=== PATIENT | female | born 1935 | race Caucasian/White ===

== ENCOUNTER → 2016-04-10 11:15 | Outpatient (CLI) | payer MEDICARE, OTHER ==
[2015-12-12 07:59] VITALS: BMI 31.6
[~2016-04-10 11:15] MED LIST: ALBUTEROL2.5 MG/3 M UPD; CARAFATE1 G PO; CORDARONE200 MG PO; FLUTICASONE PRO16 GM NASAL; MUCINEX600 MG PO; OMNICEF300 MG PO; PEPCID20 MG PO; PREDNISONE20 MG PO; SINGULAIR10 MG PO; TESSALON PERLE100 MG PO
== END | disposition home or self-care (01) ==
LOC: D.MRI 11:15
DX: M54.5 Low back pain (principal); M25.561 Pain in right knee

== ENCOUNTER 2017-04-10 15:58 | Inpatient (IN) | payer MEDICARE, OTHER | END 2017-04-15 16:38 | disposition home health service (06) | DRG 603 | LOC: D.ER 15:58 → D.SDCHOLD 22:16 → D.MS 22:38 | PROC: 0Y9M0ZZ Drainage of Right Foot, Open Approach (ICD-10-PCS; principal; 2017-04-10) | DX: L02.611 Cutaneous abscess of right foot (principal); S90.31XA Contusion of right foot, initial encounter; W22.8XXA Striking against or struck by other objects, initial encounter; Y93.79 Activity, other specified sports and athletics; I48.91 Unspecified atrial fibrillation; Z87.891 Personal history of nicotine dependence ==

== ENCOUNTER 2017-11-09 22:28 | Emergency (ER) | payer MEDICARE, OTHER ==
[~2017-11-09] VITALS: Ht 160 cm; Wt 80.3 kg
[~2017-11-09 22:28] MED LIST changes: +DOXYCYCLINE HY100 M2 PO; +ELIQUIS5 MG PO; +KEFLEX500 MG PO; +KRILL OIL 1,001 EAC1 PO; +MAG-OXIDE400 MG PO; +MEPERIDINE HCL50 MG PO; +MULTIPLE VITAMI1 TA1 PO; +TIKOSYN500 MCG PO; +VITAMIN D31000 UNIT PO
[2017-11-09 22:36] VITALS: Ht 160 cm; Wt 80.3 kg
[2017-11-09] MEDS ORDERED: BAYER CHEWABLE81 MG PO (22:38)
[2017-11-09] MEDS ORDERED: GINKGO BILOBA120 MG PO (22:38)
[2017-11-09] MEDS ORDERED: VITAMIN E600 UNIT PO (22:38)
[2017-11-10 00:31] VITALS: BP 156/68
== END 2017-11-10 00:30 | disposition home or self-care (01) ==
LOC: D.ER 22:28
DX: T82.897A Other specified complication of cardiac prosthetic devices, implants and grafts, initial encounter (principal)

== ENCOUNTER 2018-03-02 13:25 | Inpatient (IN) | payer MEDICARE, OTHER ==
[~2018-03-02] VITALS: Ht 160 cm; Wt 76.7 kg
[~2018-03-02 13:25] MED LIST changes: +BAYER CHEWABLE81 MG PO; +GINKGO BILOBA120 MG PO; +VITAMIN E600 UNIT PO
--- NOTE | 2018-03-02 14:02 | NUR ---
RECEIVED PT TO ROOM 1207 VIA WHEELCHAIR, ACCOMPANIED BY . ORIENTED PT TO ROOM AND CALL LIGHT, WILL ASSESS PT AND START PLAN OF CARE.
[2018-03-02] MEDS ORDERED: VITAMIN E400 UNI2 PO (14:21)
[2018-03-02] MEDS ORDERED: PEPCID AC20 MG PO (14:24)
[2018-03-02] MEDS ORDERED: POTASSIUM CHLO20 MEQ PO (14:25)
[2018-03-02] MEDS ORDERED: CO Q-10100 MG PO (14:26)
--- NOTE | 2018-03-02 14:57 | NUR ---
CALLED VASCULAR NURSE ANNE MARIE AND INFORMED HER THAT I NEED IV ACCESS ON PT.
[2018-03-02 14:58] VITALS: BP 130/65
[2018-03-02 15:18] LABS: BASOPHILS 0.2 % (0-2); EOSINOPHILS 0.1 % (0-7); HEMOGLOBIN 13.8 g/dL (12-16); IMMATURE GRANULOCYTES 1.4 % (0-5); LYMPHOCYTES 6.4 % (15-50); MCH 36.8 pg (26.0-34.0); MCHC 39.4 g/dL (31.0-37.0); MCV 93.3 fL (80.0-100.0); MEAN PLATELET VOLUME 10.6 fL (7.4-10.4); MONOCYTES 19.1 % (2-11); NEUTROPHILS 72.8 % (40-80); PLATELET COUNT 223 10x3/uL (130-400); RBC 3.75 10x6/uL (4.00-5.40); RDW 14.1 % (11.5-14.5); WBC 18.6 10x3/uL (4.8-10.8)
[2018-03-02 15:59] LABS: ALBUMIN 2.8 g/dL (3.4-5.0); ANION GAP 17.1 mmol/L (8-16); BILIRUBIN - TOTAL 1.25 mg/dL (0.2-1.3); CALCIUM 8.7 mg/dL (8.5-10.1); CARBON DIOXIDE 23.5 mmol/L (21.0-32.0); POTASSIUM - SERUM 3.6 mmol/L (3.5-5.1)
--- NOTE | 2018-03-02 19:45 | NUR ---
PATIENT SITTING UP IN BED. ALERT AND ORIENTED. IV TO LEFT FA INFUSING D5NS @ 50 ML/HR. O2 AT 2L NC. TAPE TRANSFERRER ON. PATIENT HAS REDNESS TO BOTH EYES. PATIENT STATES SHE HAS PINK EYE. PATIENT VOICE IS HOARSE. THERMOSTAT ADJUSTED PER PATIENT REQUEST. NO FURTHER NEEDS AT THIS TIME. BED IN LOWEST POSITION. SIDE RAILS UP. CALL LIGHT IN REACH. CONTINUE PLAN OF CARE.
[2018-03-03] VITALS: BP 140/56
--- NOTE | 2018-03-03 00:05 | NUR ---
PATIENT RESTING IN BED WITH EYES CLOSED. NO SIGNS OF DISTRESS. BED IN LOWEST POSITION. SIDE RAILS UP. CALL LIGHT IN REACH. CONTINUE PLAN OF CARE.
--- NOTE | 2018-03-03 04:30 | NUR ---
PATIENT RESTING IN BED WITH EYES CLOSED. NO SIGNS OF DISTRESS. BED IN LOWEST POSITION. SIDE RAILS UP. CALL LIGHT IN REACH. CONTINUE PLAN OF CARE.
[2018-03-03 05:13] VITALS: BP 125/63
[2018-03-03 07:08] LABS: HEMATOCRIT 38.5 % (36.0-48.0); HEMOGLOBIN 13.2 g/dL (12-16); MCH 30.5 pg (26.0-34.0); MCHC 34.3 g/dL (31.0-37.0); MCV 88.9 fL (80.0-100.0); MEAN PLATELET VOLUME 10.1 fL (7.4-10.4); PLATELET COUNT 232 10x3/uL (130-400); RBC 4.33 10x6/uL (4.00-5.40); RDW 13.8 % (11.5-14.5); WBC 21.7 10x3/uL (4.8-10.8)
[2018-03-03 07:20] LABS: ANION GAP 14.5 mmol/L (8-16); CALCIUM 8.5 mg/dL (8.5-10.1); CARBON DIOXIDE 23.8 mmol/L (21.0-32.0); MAGNESIUM - SERUM 1.6 mg/dL (1.8-2.4); PHOSPHOROUS 2.4 mg/dL (2.5-4.9); POTASSIUM - SERUM 3.3 mmol/L (3.5-5.1)
[2018-03-03 07:47] VITALS: BP 140/50
--- NOTE | 2018-03-03 08:00 | NUR ---
RECIEVED BEDSIDE REPORT. AM ROUNDS COMPLETED. VSJolene, AAO X3. PT STATES SHE HAS BEEN COUGHING ALL MORNING AND THAT SHE HAVE DIFFICULTY BREATHING. CALLED RESPIRATORY FOR BREATHING TREATMENT. AM MEDS GIVEN. WILL CONTINUE POC. PT DENIES PAIN NEEDS AT THIS TIME. WILL CTM. CL IN REACH, BED IN LOW.
[2018-03-03 08:21] LABS: LYMPHOCYTES 13 % (15-50); MONOCYTES 21 % (2-11); NEUTROPHILS 55 % (40-80); PLATELET ESTIMATE NORMAL
[2018-03-03 08:22] LABS: ANISOCYTOSIS OCC
--- NOTE | 2018-03-03 11:00 | NUR ---
PT SITTING UP IN BED WITH SPOUSE AT BEDSIDE. PT STATES SHE IS STILL COUGHING. WILL CTM. CL IN REACH. BED IN LOW.
[2018-03-03 11:16] VITALS: BP 113/52
--- NOTE | 2018-03-03 13:33 | NUR ---
L.FA PIV INFILTRATED. D/C WITH CATHETER TIP FULLY INTACT. NEW 20 GUAGE PIV INSERTED TO L.FA HIGHER UP IN ARM. FLUIDS RUNNING @50ML/HR ORDERED. NO FURTHER NEEDS AT THIS TIME. WILL CTM.
[2018-03-03 15:28] VITALS: BP 144/76
--- NOTE | 2018-03-04 00:22 | NUR ---
SENT FAX TO [facility] REGARDING MEDS NEEDED.
--- NOTE | 2018-03-04 01:43 | NUR ---
PATIENT ALERT AND ORIENTED , CALM AND COOPERATIVE, COUGH FREQUENTLY, HS MEDS JESSICA WELL, CONTINUE PLAN OF CARE, WILL CONTINUE TO MONITOR.
[2018-03-04 03:11] VITALS: BP 113/53
[2018-03-04 04:25] VITALS: BP 112/82
[2018-03-04 07:55] LABS: HEMATOCRIT 36.4 % (36.0-48.0); HEMOGLOBIN 12.4 g/dL (12-16); MCH 30.1 pg (26.0-34.0); MCHC 34.1 g/dL (31.0-37.0); MCV 88.3 fL (80.0-100.0); MEAN PLATELET VOLUME 10.2 fL (7.4-10.4); PLATELET COUNT 235 10x3/uL (130-400); RBC 4.12 10x6/uL (4.00-5.40); WBC 21.6 10x3/uL (4.8-10.8)
--- NOTE | 2018-03-04 08:00 | NUR ---
RECIEVED BEDSIDE REPORT. AM ROUNDS COMPLETED. VSS, BUT PT STATES SHE IS HAVING A LITTLE DIFFICULTY BREATHING. RAISED PT UP IN HIGH-FOWLERS. PT COUGHING OUT MUCUS WITH SCANT BLOOD IN IT. PT STATES SHE HAS BEEN COUGHNING ALL NIGHT. AM MEDS GIVEN ALONGSIDE LOZENGES. WILL CONTINUE TO MONITOR PT. CL IN REACH. BED IN LOW.
[2018-03-04 08:12] LABS: ALBUMIN 2.3 g/dL (3.4-5.0); ANION GAP 14.1 mmol/L (8-16); BILIRUBIN - TOTAL 0.6 mg/dL (0.2-1.3); CARBON DIOXIDE 24.2 mmol/L (21.0-32.0); CREATININE - SERUM 0.9 mg/dL (0.6-1.3); POTASSIUM - SERUM 3.3 mmol/L (3.5-5.1); PROTEIN - SERUM 6.3 g/dL (6.4-8.2)
[2018-03-04 08:19] LABS: IMMUNOGLOBULIN A 130 mg/dL (64-422); IMMUNOGLOBULIN G 637 mg/dL (700-1600)
[2018-03-04 08:35] LABS: LYMPHOCYTES 13 % (15-50); MONOCYTES 22 % (2-11); NEUTROPHILS 56 % (40-80); PLATELET ESTIMATE NORMAL
[2018-03-04 09:09] VITALS: BP 126/50
[2018-03-04 14:21] VITALS: BP 149/55
[2018-03-04 16:45] VITALS: BP 141/47
[2018-03-05 01:16] VITALS: BP 119/54
--- NOTE | 2018-03-05 03:47 | NUR ---
PT RESTING IN BED. COUGHING FREQUENTLY PRODUCTIVE. PT HAS NO S/S OF DISTRESS. DENIES ANY NEEDS. PT WILL CALL FOR ASSIST WHEN NEEDED. WILL CPOC
--- NOTE | 2018-03-05 04:20 | NUR ---
PT RESTING IN BED COMFORTABLY RESPIRATIONS EVEN AND UNLABORED. BED LOW CALL LIGHT WITHIN REACH. WILL CONTINUE TO MONITOR.
[2018-03-05 07:10] LABS: BASOPHILS 1.5 % (0-2); EOSINOPHILS 0.9 % (0-7); HEMATOCRIT 34.8 % (36.0-48.0); HEMOGLOBIN 11.9 g/dL (12-16); IMMATURE GRANULOCYTES 13.2 % (0-5); LYMPHOCYTES 10.8 % (15-50); MCH 30.7 pg (26.0-34.0); MCHC 34.2 g/dL (31.0-37.0); MCV 89.9 fL (80.0-100.0); MEAN PLATELET VOLUME 9.8 fL (7.4-10.4); MONOCYTES 15.3 % (2-11); NEUTROPHILS 58.3 % (40-80); PLATELET COUNT 227 10x3/uL (130-400); RBC 3.87 10x6/uL (4.00-5.40); RDW 14.3 % (11.5-14.5); WBC 18.9 10x3/uL (4.8-10.8)
[2018-03-05 07:47] LABS: ANION GAP 12.6 mmol/L (8-16); BILIRUBIN - TOTAL 0.54 mg/dL (0.2-1.3); CARBON DIOXIDE 25.8 mmol/L (21.0-32.0); CREATININE - SERUM 0.9 mg/dL (0.6-1.3); POTASSIUM - SERUM 3.4 mmol/L (3.5-5.1); PROTEIN - SERUM 5.9 g/dL (6.4-8.2)
[2018-03-05 08:05] VITALS: BP 141/74
--- NOTE | 2018-03-05 09:10 | NUR ---
PATIENT IN BED, SKIN W/D TO TOUCH, COLOR PINK, RESP. CWR2SIX AT 22, PATIENT COUGHING NON-PRODUCTIVELY, O21 ON AT 2. ABDOMEN SOFT WITH BS + IN ALL 4 QUADS. AT BEDSIDE, DENIES C/O PAIN WHEN ASKED. PATIENT ENCOURAGED TO DRINK EXTRA WATER AND TOLERATING WELL. C/L WITHIN REACH AND SR'S UP X'S 2 AND BED IN LOWEST POSITION.
[2018-03-05 11:32] VITALS: BP 132/51
--- NOTE | 2018-03-05 12:29 | NUR ---
PATIENT GIVEN SHOWER AT 1115 AND COMPLETE BED CHANGE DONE.
[2018-03-05 15:43] VITALS: BP 146/55
[2018-03-05 20:30] VITALS: BP 137/82
--- NOTE | 2018-03-05 21:00 | NUR ---
IV D/C'D WITH CATHETER INTACT. 22G RESITED TO LEFT FOREARM, 1ST ATTEMPT. PT TOLERATED WELL. NO COMPLAINTS OR REQUESTS AT THIS TIME.
[2018-03-06 00:38] VITALS: BP 116/55
--- NOTE | 2018-03-06 01:21 | NUR ---
IV NOT FLUSHING. SELF AND OTHER NURSE ATTEMPTED TO START IV X 1 EACH. BOTH ATTEMPTS FAILED. CALLED NURSE FROM [facility] TO ATTEMPT.
--- NOTE | 2018-03-06 01:46 | NUR ---
22G IV RESITED TO RIGHT FOREARM BY OTHER NURSE. IV IN LEFT FOREARM DC'D WITH CATHETER INTACT.
[2018-03-06 04:10] VITALS: BP 137/74
[2018-03-06 07:32] LABS: EOSINOPHILS 0.9 % (0-7); HEMATOCRIT 36.7 % (36.0-48.0); HEMOGLOBIN 12.6 g/dL (12-16); LYMPHOCYTES 10.7 % (15-50); MCH 30.3 pg (26.0-34.0); MCHC 34.3 g/dL (31.0-37.0); MCV 88.2 fL (80.0-100.0); MEAN PLATELET VOLUME 9.5 fL (7.4-10.4); MONOCYTES 16.1 % (2-11); NEUTROPHILS 52.3 % (40-80); PLATELET COUNT 256 10x3/uL (130-400); RBC 4.16 10x6/uL (4.00-5.40); RDW 14.2 % (11.5-14.5); WBC 21.3 10x3/uL (4.8-10.8)
[2018-03-06 07:50] LABS: ALBUMIN 2.2 g/dL (3.4-5.0); ANION GAP 14.1 mmol/L (8-16); BILIRUBIN - TOTAL 0.84 mg/dL (0.2-1.3); CALCIUM 7.9 mg/dL (8.5-10.1); CREATININE - SERUM 0.9 mg/dL (0.6-1.3); POTASSIUM - SERUM 3.1 mmol/L (3.5-5.1); PROTEIN - SERUM 6.3 g/dL (6.4-8.2); VANCOMYCIN - TROUGH 4.4 ug/mL (10.0-20.0)
--- NOTE | 2018-03-06 09:00 | NUR ---
PATIENT POTASSIUM 3.1 40 MEQ POTASSIUM GIVEN PER ELECTROLYTE PROTOCAL.
[2018-03-06 14:04] VITALS: BP 135/74
[2018-03-06 14:05] VITALS: BP 141/58
--- NOTE | 2018-03-06 14:09 | NUR ---
PATIENT WASHED UP AND COMPLETE BED CHANGE DONE, AT BEDSIDE. DENIES ANY C/O PAIN WHEN ASKED. C/L WITHIN REACH AND SR'S UP X'S 2.
--- NOTE | 2018-03-06 14:28 | NUR ---
RECEIVED PATIENT'S POTASSIUM LEVEL AND NOW 3.3 PHARMACY NOTIFIED OF POTASSIUM 40 MEQ. NEED
--- NOTE | 2018-03-06 17:46 | NUR ---
PATIENT'S IV OUT KERRI MACHUCA WILL RESITE IV PATIENT INFORMED AND VERBALIZED UNDERSTANDING. C/L WITHIN REACH AND SR'S UP X'S 2
--- NOTE | 2018-03-06 18:39 | NUR ---
KERRI RN STARTED IV RIGHT UPPER ARM 20 GAUGE, PATIENT TOLERATED WELL.
--- NOTE | 2018-03-06 19:30 | NUR ---
PUT [place] HAT IN BATHROOM FOR STOOL SPECIMEN. PT INFORMED ON RODER AND TO PRESS CL WHEN BM IS PASSED. PT VERBALIZED UNDERSTANDING.
[2018-03-06 20:43] VITALS: BP 145/81
[2018-03-07 05:20] VITALS: BP 146/73
[2018-03-07 08:11] LABS: HEMATOCRIT 35.3 % (36.0-48.0); HEMOGLOBIN 11.9 g/dL (12-16); MCH 30.1 pg (26.0-34.0); MCHC 33.7 g/dL (31.0-37.0); MCV 89.1 fL (80.0-100.0); MEAN PLATELET VOLUME 9.5 fL (7.4-10.4); PLATELET COUNT 264 10x3/uL (130-400); RBC 3.96 10x6/uL (4.00-5.40); RDW 14.3 % (11.5-14.5); WBC 20.3 10x3/uL (4.8-10.8)
[2018-03-07 08:24] VITALS: BP 148/55
[2018-03-07 08:30] LABS: ANION GAP 14.2 mmol/L (8-16); BILIRUBIN - TOTAL 0.73 mg/dL (0.2-1.3); CALCIUM 7.8 mg/dL (8.5-10.1); CARBON DIOXIDE 24.5 mmol/L (21.0-32.0); CREATININE - SERUM 0.8 mg/dL (0.6-1.3); POTASSIUM - SERUM 3.7 mmol/L (3.5-5.1); PROTEIN - SERUM 5.9 g/dL (6.4-8.2)
[2018-03-07 09:34] LABS: EOSINOPHILS 2 % (0-7); LYMPHOCYTES 15 % (15-50); MONOCYTES 19 % (2-11); NEUTROPHILS 53 % (40-80); PLATELET ESTIMATE NORMAL
[2018-03-07 09:35] LABS: ANISOCYTOSIS OCC
--- NOTE | 2018-03-07 09:48 | NUR ---
AM MEDS GIVEN AT THIS TIME. ALSO GAVE 650MG OF TYLENOL FOR PAIN LEVEL OF 4/10 TO HEAD. PT DENIES ANY OTHER NEEDS AT THIS TIME. CALL LIGHT IN REACH, NAD NOTED, WILL CONTINUE TO MONITOR.
[2018-03-07 13:13] LABS: SPECIMEN SOURCE Urine (())
[2018-03-07 16:54] VITALS: BP 138/82
[2018-03-07 20:00] VITALS: BP 129/69
--- NOTE | 2018-03-07 20:36 | NUR ---
PATIENT RESTING IN BED WITH NO S/S OF DISTRESS. ADMINISTERED MEDS PER ORDERS. PATIENT DENIES OTHER NEEDS AT THIS TIME. BED IN LOWEST POSITION AND CALL LIGHT WITHIN REACH. ENCOURAGED THE PATIENT TO CALL IF SHE HAS NEEDS. WILL CONTINUE TO MONITOR.
[2018-03-08] VITALS: BP 155/63
[2018-03-08 04:00] VITALS: BP 162/62
[2018-03-08 07:27] VITALS: BP 139/63
[2018-03-08 08:03] LABS: ANION GAP 16.2 mmol/L (8-16); BILIRUBIN - TOTAL 0.55 mg/dL (0.2-1.3); CALCIUM 7.9 mg/dL (8.5-10.1); CARBON DIOXIDE 22.4 mmol/L (21.0-32.0); CREATININE - SERUM 0.8 mg/dL (0.6-1.3); POTASSIUM - SERUM 3.6 mmol/L (3.5-5.1); PROTEIN - SERUM 5.9 g/dL (6.4-8.2)
[2018-03-08 08:27] LABS: BASOPHILS 1.6 % (0-2); EOSINOPHILS 2.1 % (0-7); HEMATOCRIT 32.9 % (36.0-48.0); HEMOGLOBIN 12.4 g/dL (12-16); IMMATURE GRANULOCYTES 20.5 % (0-5); MCH 34.1 pg (26.0-34.0); MCHC 37.7 g/dL (31.0-37.0); MCV 90.4 fL (80.0-100.0); MEAN PLATELET VOLUME 9.8 fL (7.4-10.4); MONOCYTES 13.1 % (2-11); NEUTROPHILS 51.7 % (40-80); PLATELET COUNT 250 10x3/uL (130-400); RBC 3.64 10x6/uL (4.00-5.40); RDW 14.7 % (11.5-14.5); WBC 18.8 10x3/uL (4.8-10.8)
--- NOTE | 2018-03-08 09:11 | NUR ---
AM MEDS GIVEN AT THIS TIME. PT IN BED, DENIES ANY NEEDS AT THIS TIME. AT BEDSIDE, NAD NOTED, WILL CONTINUE TO MONITOR.
[2018-03-08 11:43] VITALS: BP 136/53
[2018-03-08 15:13] VITALS: BP 153/56
--- NOTE | 2018-03-08 15:15 | NUR ---
IVBP DORINA MUHAMMAD AT THIS TIME. PT RECEIVING AN UPDRAFT AT THSI TIME. DENIES ANY NEEDS, NEW 22G IV STARTED TO RT WRIST BY VASCULAR ACCESS NURSE. [facility], NAD NOTED, WILL CONTINUE TO MONITOR.
[2018-03-08 20:00] VITALS: BP 134/74
--- NOTE | 2018-03-08 21:28 | NUR ---
PATIENT RESTING IN BED WITH NO S/S OF DISTRESS. PATIENT DENIES NEEDS AT THIS TIME. ADMINISTERED MEDS PER ORDERS. BED IN LOWEST POSITION AND CALL LIGHT WITHIN REACH. ENCOURAGED THE PATIENT TO CALL IF SHE HAS NEEDS.
[2018-03-09 00:20] VITALS: BP 133/55
[2018-03-09 04:00] VITALS: BP 105/60
--- NOTE | 2018-03-09 04:42 | NUR ---
PATIENT C/O OF PAIN AT IV SITE. REDNESS AND SWELLING NOTED. REMOVED IV WITH CATH TIP INTACT.
[2018-03-09 07:17] LABS: HEMATOCRIT 35.8 % (36.0-48.0); HEMOGLOBIN 12.2 g/dL (12-16); MCHC 34.1 g/dL (31.0-37.0); MEAN PLATELET VOLUME 9.6 fL (7.4-10.4); PLATELET COUNT 252 10x3/uL (130-400); RBC 4.06 10x6/uL (4.00-5.40); RDW 14.3 % (11.5-14.5); WBC 16.9 10x3/uL (4.8-10.8)
[2018-03-09 07:23] LABS: MCV 88.2 fL (80.0-100.0)
[2018-03-09 07:42] LABS: ALBUMIN 1.9 g/dL (3.4-5.0); ANION GAP 12.2 mmol/L (8-16); BILIRUBIN - TOTAL 0.48 mg/dL (0.2-1.3); CARBON DIOXIDE 25.2 mmol/L (21.0-32.0); CREATININE - SERUM 0.8 mg/dL (0.6-1.3); MAGNESIUM - SERUM 2.1 mg/dL (1.8-2.4); POTASSIUM - SERUM 3.4 mmol/L (3.5-5.1); PROTEIN - SERUM 5.8 g/dL (6.4-8.2); VANCOMYCIN - TROUGH 5.7 ug/mL (10.0-20.0)
[2018-03-09 08:24] VITALS: BP 149/68
[2018-03-09 08:50] LABS: ANISOCYTOSIS OCC; BASOPHILS 1 % (0-2); EOSINOPHILS 3 % (0-7); LYMPHOCYTES 9 % (15-50); MONOCYTES 13 % (2-11); NEUTROPHILS 53 % (40-80); PLATELET ESTIMATE NORMAL; ROULEAUX OCC
--- NOTE | 2018-03-09 10:19 | NUR ---
PT TRANSFERED TO [facility] AT THIS TIME.
--- NOTE | 2018-03-09 10:52 | NUR ---
PT TRANSFERED BACK TO ROOM FROM XRAY. AM MEDS GIVEN. IVPB CEFEPIME DOSE LATE DUE TO PT NOT HAVING IV ACCESS. PT DENIES ANY OTHER NEEDS AT THIS TIME. CALL LIGHT IN REACH, AT BEDSIDE, NAD NOTED, WILL CONTINUE TO MONITOR.
[2018-03-09 12:56] VITALS: BP 136/81
[2018-03-09 16:50] VITALS: BP 136/64
--- NOTE | 2018-03-09 20:00 | NUR ---
RECEIVED PATIENT ON PHONE WHEN INTRODUCING SELF, PATIENT HAS NO S/SX OF DISCOMFORT OR PAIN AT THIS TIME. RESPIRATIONS EVEN AND UNLABORED. BED IN LOWEST POSITION, CALL LIGHT WITHIN REACH. ENCOURAGED TO CALL IF SHE NEEDS ANYTHING.
--- NOTE | 2018-03-10 03:00 | NUR ---
PATIENT RESTING IN BED ON RIGHT SIDE, REMINDED PATIENT TO KEEP ARM STRAIGHT TO NOT OCCLUDE THE IV. PATIENT HAS NO SIGNS OR SYMPTOMS OF PAIN OR DISCOMFORT. BED IN LOWEST POSITION, CALL LIGHT WITHIN REACH.
--- NOTE | 2018-03-10 06:09 | NUR ---
PT SITTING UP IN BED, COUGHING FREQUENTLY. PRODUCTIVE COUGH. PT HAS NO S/S OF DISTRESS. BEDLOW AND CALL LIGHT IN REACH. PT WILL CALL FOR ASSIST WHEN NEEDED. WILL CPOC
[2018-03-10 06:10] VITALS: BP 155/70
[2018-03-10 07:49] LABS: ALBUMIN 2.1 g/dL (3.4-5.0); ANION GAP 13.6 mmol/L (8-16); BILIRUBIN - TOTAL 0.5 mg/dL (0.2-1.3); CALCIUM 8.2 mg/dL (8.5-10.1); CARBON DIOXIDE 25.9 mmol/L (21.0-32.0); CREATININE - SERUM 0.8 mg/dL (0.6-1.3); MAGNESIUM - SERUM 2.2 mg/dL (1.8-2.4); POTASSIUM - SERUM 3.5 mmol/L (3.5-5.1); PROTEIN - SERUM 6.4 g/dL (6.4-8.2)
[2018-03-10 08:13] LABS: HEMATOCRIT 38.6 % (36.0-48.0); HEMOGLOBIN 13.2 g/dL (12-16); LYMPHOCYTES 14.3 % (15-50); MCH 30.6 pg (26.0-34.0); MCHC 34.2 g/dL (31.0-37.0); MCV 89.4 fL (80.0-100.0); MEAN PLATELET VOLUME 9.8 fL (7.4-10.4); NEUTROPHILS 72.1 % (40-80); PLATELET COUNT 242 10x3/uL (130-400); RBC 4.32 10x6/uL (4.00-5.40); RDW 14.7 % (11.5-14.5); WBC 15.6 10x3/uL (4.8-10.8)
[2018-03-10 09:34] VITALS: BP 132/56
--- NOTE | 2018-03-10 10:44 | MORECARE ---
CASE MANAGEMENT DISCHARGE SUMMARY PATIENT: VANESA LEY UNIT: [id number] ADM DATE: 03/04/18 AGE: 82 : 36 SEX: F ROOM/BED: D.[facility] AUTHOR: CHASIDYDOC PHYSICIAN: REFERRING PHYSICIAN: HI COLBERT MD DATE OF SERVICE: 03/10/18 Discharge Plan Patient Name: VANESA LEY Facility: [facility]:[place] : 1935 Planned Disposition: Anticipated Discharge Date: Discharge Date: Expected LOS: Initial Reviewer: [id number] Initial Review Date: 03/10/2018 Generated: 03/10/18 11:44 am Comments DCP- Discharge Planning Updated by [id number]: Makayla Montelongo on 03/10/18 9:[address] Patient Name: VANESA LEY Admission Status: Elective Accout number: [id number] Admission Date: 03-04-2018 : 1935 Admission Diagnosis: Attending: HI COLBERT Current LOS: 6 Anticipated DC Date: Planned Disposition: Primary Insurance: MEDICARE A & B Discharge Planning Comments: CM MET WITH PATIENT ABOUT DC PLANNING/NEEDS. PATIENT STATES SHE WOULD LIKE [facility] IF POSSIBLE . CM WILL FOLLOW AND ASSIST NEEDED. IM SIGNED. Gun Welder: Makayla Montelongo DCPIA - Discharge Planning Initial Assessment Updated by [id number]: Makayla Montelongo on 03/10/18 10:39 am * Is the patient Alert and Oriented? Yes * PCP CONSTANCE * Pharmacy [facility] * Preadmission Environment Home with Family * ADLs Independent * Equipment Walker * Community resources currently utilized None * Additional services required to return to the preadmission environment? No * Can the patient safely return to the preadmission environment? Yes * Has this patient been hospitalized within the prior 30 days at any hospital? No Coverage Notice Reviewer: [id number] - Makayla Montelongo Notice Issued Date-Time: 03/10/2018 10:35 Notice Type: IM Discharge Notice Notice Delivered To: Patient Relationship to Patient: Self Supervisor Carbon Paper Coating Name: Delivery Method: HAND - Hand Delivered Nelda Days: Prior Verbal Notification: Recipient Understood Notice: Yes Recipient Signature: Yes Med Rec Note Co-signed by Attending: Coverage Notice Comment: Patient Name: VANESA LEY Page [phone] at 1044 All edits/amendments must be made on the electronic document DICTATION DATE: 03/10/18 104 [employer] MECHANIC: WILLIAM 03/10/181042 RPT#: [id number] DC DATE: STATUS: ADM IN [facility] [address] [place] [address] END OF REPORT
[2018-03-10 10:57] VITALS: Ht 160 cm; Wt 76.7 kg
[2018-03-10 12:41] VITALS: BP 154/67
--- NOTE | 2018-03-10 13:59 | MORECARE ---
CASE MANAGEMENT DISCHARGE SUMMARY PATIENT: VANESA LEY UNIT: [id number] ADM DATE: 03/04/18 AGE: 82 : 36 SEX: F ROOM/BED: D.[facility]7 AUTHOR: CHASIDYDOC PHYSICIAN: REFERRING PHYSICIAN: HI COLBERT MD DATE OF SERVICE: 03/10/18 Discharge Plan Patient Name: VANESA LEY Facility: [facility]:[place] : 1935 Planned Disposition: Anticipated Discharge Date: Discharge Date: Expected LOS: Initial Reviewer: [email or web address] Initial Review Date: 03/10/2018 Generated: 03/10/18 2:59 pm Comments DCP- Discharge Planning Updated by [id number]: Makayla Montelongo on 03/10/18 9:[address] Patient Name: VANESA LEY Admission Status: Elective Accout number: [id number] Admission Date: 03-04-2018 : 1935 Admission Diagnosis: Attending: HI COLBERT Current LOS: 6 Anticipated DC Date: Planned Disposition: Primary Insurance: MEDICARE A & B Discharge Planning Comments: CM MET WITH PATIENT ABOUT DC PLANNING/NEEDS. PATIENT STATES SHE WOULD LIKE [facility] IF POSSIBLE . CM WILL FOLLOW AND ASSIST NEEDED. IM SIGNED. Pharmaceutical Sales: Makayla Montelongo DCPIA - Discharge Planning Initial Assessment Updated by [email or web address]: Makayla Montelongo on 03/10/18 10:39 am * Is the patient Alert and Oriented? Yes * PCP CONSTANCE * [facility] * Preadmission Environment Home with Family * ADLs Independent * Equipment Walker * Community resources currently utilized None * Additional services required to return to the preadmission environment? No * Can the patient safely return to the preadmission environment? Yes * Has this patient been hospitalized within the prior 30 days at any hospital? No Coverage Notice Reviewer: [id number] - Makayla Montelongo Notice Issued Date-Time: 03/10/2018 10:35 Notice Type: IM Discharge Notice Notice Delivered To: Patient Relationship to Patient: Self Retail Sales Merchandiser Development Name: Delivery Method: HAND - Hand Delivered Nelda Days: Prior Verbal Notification: Recipient Understood Notice: Yes Recipient Signature: Yes Med Rec Note Co-signed by Attending: Coverage Notice Comment: Last DP export: 03/10/18 9:44 a Patient Name: VANESA LEY Page 77912 at 1359 All edits/amendments must be made on the electronic document DICTATION DATE: 03/10/18 1354 COMPOSITE MECHANIC: WILLIAM 03/10/18 135 RPT#: [id number] DC DATE: STATUS: ADM IN [facility] [address] [place] [address] END OF REPORT
[2018-03-10] MEDS ORDERED: BENZONATATE200 MG PO (14:03)
[2018-03-10] MEDS ORDERED: MUCINEX DM ER1 EAC1 PO (14:03)
[2018-03-10] MEDS ORDERED: TOBREX5 ML EACH EYE (14:04)
[2018-03-10] MEDS ORDERED: FLUTICASONE PRO16 GM NASAL (14:04)
--- NOTE | 2018-03-10 14:08 | MORECARE ---
CASE MANAGEMENT DISCHARGE SUMMARY PATIENT: VANESA LEY UNIT: [id number] ADM DATE: 03/04/18 AGE: 82 : 36 SEX: F ROOM/BED: D.1207 AUTHOR: STANLEY UMAÑA PHYSICIAN: REFERRING PHYSICIAN: HI COLBERT MD DATE OF SERVICE: 03/10/18 Discharge Plan Patient Name: VANESA LEY Facility: [facility]:[place] : 1935 Planned Disposition: Anticipated Discharge Date: Discharge Date: Expected LOS: Initial Reviewer: [id number] Initial Review Date: 03/10/2018 Generated: 03/10/18 3:08 pm Comments DCP- Discharge Planning Updated by [email or web address]: Makayla Montelongo on 03/10/18 9:[address] Patient Name: VANESA LEY Admission Status: Elective Accout number: [id number] Admission Date: 03-04-2018 : 1935 Admission Diagnosis: Attending: HI COLBERT Current LOS: 6 Anticipated DC Date: Planned Disposition: Primary Insurance: MEDICARE A & B Discharge Planning Comments: CM MET WITH PATIENT ABOUT DC PLANNING/NEEDS. PATIENT STATES SHE WOULD LIKE [employer] IF POSSIBLE . CM WILL FOLLOW AND ASSIST NEEDED. IM SIGNED. Food Service Attendant: Makayla Montelongo DCPIA - Discharge Planning Initial Assessment Updated by [id number]: Makayla Montelongo on 03/10/18 10:39 am * Is the patient Alert and Oriented? Yes * PCP CONSTANCE * Pharm[facility] * Preadmission Environment Home with Family * ADLs Independent * Equipment Walker * Community resources currently utilized None * Additional services required to return to the preadmission environment? No * Can the patient safely return to the preadmission environment? Yes * Has this patient been hospitalized within the prior 30 days at any hospital? No External Providers External Provider: [employer] [facility] Next Contact Date: Service Request Date: Service Type: Resolution: Reviewer: Comments: Coverage Notice Reviewer: [id number] Jessica Montelongo Notice Issued Date-Time: 03/10/2018 10:35 Notice Type: IM Discharge Notice Notice Delivered To: Patient Relationship to Patient: Self Consumer Lender Name: Delivery Method: HAND - Hand Delivered Nelda Days: Prior Verbal Notification: Recipient Understood Notice: Yes Recipient Signature: Yes Med Rec Note Co-signed by Attending: Coverage Notice Comment: Reviewer: [id number] Jessica Montelongo Notice Issued Date-Time: 03/10/2018 14:02 Notice Type: Patient Choice Letter Notice Delivered To: Patient Relationship to Patient: Self Consumer Lender Name: Delivery Method: HAND - Hand Delivered Nelda Days: Prior Verbal Notification: Recipient Understood Notice: Recipient Signature: Med Rec Note Co-signed by Attending: Coverage Notice Comment: COBY LEE Last DP export: 03/10/18 12:59 p Patient Name: VANESA LEY Page [phone] at 1408 All edits/amendments must be made on the electronic document DICTATION DATE: 03/10/181407 PANEL MACHINE TENDER: WILLIAM 03/10/181407 RPT#: [id number] DC DATE: STATUS: ADM IN [facility] [address] [place] [address] END OF REPORT
--- NOTE | 2018-03-10 14:25 | MORECARE ---
CASE MANAGEMENT DISCHARGE SUMMARY PATIENT: VANESA LEY UNIT: [id number] ADM DATE: 03/04/18 AGE: 82 : 36 SEX: F ROOM/BED: D.1207 AUTHOR: CHASIDYDOC PHYSICIAN: REFERRING PHYSICIAN: HI COLBERT MD DATE OF SERVICE: 03/10/18 Discharge Plan Patient Name: VANESA LEY Facility: [facility]:[place] : 1935 Planned Disposition: Anticipated Discharge Date: Discharge Date: Expected LOS: Initial Reviewer: [id number] Initial Review Date: 03/10/2018 Generated: 03/10/18 3:25 pm Comments DCP- Discharge Planning Updated by [id number]: Makayla Montelongo on 03/10/18 1:[address] Patient Name: VANESA LEY Admission Status: Elective Accout number: [id number] Admission Date: 03-04-2018 : 1935 Admission Diagnosis: Attending: HI COLBERT Current LOS: 6 Anticipated DC Date: Planned Disposition: Primary Insurance: MEDICARE A & B Discharge Planning Comments: CM MET WITH PATIENT ABOUT DC PLANNING/NEEDS. PATIENT STATES SHE WOULD LIKE [facility] IF POSSIBLE . CM WILL FOLLOW AND ASSIST NEEDED. IM SIGNED. Professor Of Graphic Design: Makayla Montelongo Appended by Makayla Montelongo on 03/10/2018 14:19 TOWER CLEANER: [facility] CALLED AND DOCUMENTS FAXED. THEY SAID MAY BE WED OR WEDNESDAY BEFORE THEY CAN SEE THE PATIENT. [employer] PHONE NUMBER IS [phone]. DCPIA - Discharge Planning Initial Assessment Updated by [id number]: Makayla Montelongo on 03/10/18 10:39 am * Is the patient Alert and Oriented? Yes * PCP CONSTANCE * Pharm[facility] * Preadmission Environment Home with Family * ADLs Independent * Equipment Walker * Community resources currently utilized None * Additional services required to return to the preadmission environment? No * Can the patient safely return to the preadmission environment? Yes * Has this patient been hospitalized within the prior 30 days at any hospital? No Coverage Notice Reviewer: [id number] - Makayla Montelongo Notice Issued Date-Time: 03/10/2018 10:35 Notice Type: IM Discharge Notice Notice Delivered To: Patient Relationship to Patient: Self Cook Helper Pastry Name: Delivery Method: HAND - Hand Delivered Nelda Days: Prior Verbal Notification: Recipient Understood Notice: Yes Recipient Signature: Yes Med Rec Note Co-signed by Attending: Coverage Notice Comment: Reviewer: [id number] Jessica Montelongo Notice Issued Date-Time: 03/10/2018 14:02 Notice Type: Patient Choice Letter Notice Delivered To: Patient Relationship to Patient: Self Cook Helper Pastry Name: Delivery Method: HAND - Hand Delivered Nelda Days: Prior Verbal Notification: Recipient Understood Notice: Recipient Signature: Med Rec Note Co-signed by Attending: Coverage Notice Comment: COBY LEE Last DP export: 03/10/18 1:08 p Patient Name: VANESA LEY Page 26713 at 1425 All edits/amendments must be made on the electronic document DICTATION DATE: 03/10/181423 MACHINE VENEER REPAIRER: WILLIAM 03/10/18 1424 RPT#: [id number] [place] DATE: STATUS: ADM IN [facility] [address] [place] [address] END OF REPORT
--- NOTE | 2018-03-11 15:51 | MORECARE ---
CASE MANAGEMENT DISCHARGE SUMMARY PATIENT: VANESA LEY UNIT: [id number] ADM DATE: 03/04/18 AGE: 82 : 36 SEX: F ROOM/BED: D.1207 AUTHOR: STANLEY UMAÑA PHYSICIAN: REFERRING PHYSICIAN: HI COLBERT MD DATE OF SERVICE: 03/11/18 Discharge Plan Patient Name: VANESA LEY Facility: [facility]:[place] : 1935 Planned Disposition: Anticipated Discharge Date: Discharge Date: 03/10/2018 Expected LOS: Initial Reviewer: [id number] Initial Review Date: 03/10/2018 Generated: 03/11/18 4:51 pm Comments DCP- Discharge Planning Updated by [email or web address]: Makayla Montelongo on 03/10/18 1:[address] Patient Name: VANESA LEY Admission Status: Elective Accout number: [id number] Admission Date: 03-04-2018 : 1935 Admission Diagnosis: Attending: HI COLBERT Current LOS: 6 Anticipated DC Date: Planned Disposition: Primary Insurance: MEDICARE A & B Discharge Planning Comments: CM MET WITH PATIENT ABOUT DC PLANNING/NEEDS. PATIENT STATES SHE WOULD LIKE [facility] IF POSSIBLE . CM WILL FOLLOW AND ASSIST NEEDED. IM SIGNED. Oracle Scm Consultant: Makayla Montelongo Appended by Makayla Montelongo on 03/10/2018 14:19 LABOR RELATIONS OFFICER: [facility] CALLED AND DOCUMENTS FAXED. THEY SAID MAY BE WED OR WEDNESDAY BEFORE THEY CAN SEE THE PATIENT. [employer] PHONE NUMBER IS [phone]. DCPIA - Discharge Planning Initial Assessment Updated by [id number]: Makayla Montelongo on 03/10/18 10:39 am * Is the patient Alert and Oriented? Yes * PCP CONSTANCE * Pharm[facility] * Preadmission Environment Home with Family * ADLs Independent * Equipment Walker * Community resources currently utilized None * Additional services required to return to the preadmission environment? No * Can the patient safely return to the preadmission environment? Yes * Has this patient been hospitalized within the prior 30 days at any hospital? No Coverage Notice Reviewer: [id number] - Makayla Montelongo Notice Issued Date-Time: 03/10/2018 10:35 Notice Type: IM Discharge Notice Notice Delivered To: Patient Relationship to Patient: Self Clinical Data Abstractor Name: Delivery Method: HAND - Hand Delivered Nelda Days: Prior Verbal Notification: Recipient Understood Notice: Yes Recipient Signature: Yes Med Rec Note Co-signed by Attending: Coverage Notice Comment: Reviewer: [id number] Jessica Montelongo Notice Issued Date-Time: 03/10/2018 14:02 Notice Type: Patient Choice Letter Notice Delivered To: Patient Relationship to Patient: Self Clinical Data Abstractor Name: Delivery Method: HAND - Hand Delivered Nelda Days: Prior Verbal Notification: Recipient Understood Notice: Recipient Signature: Med Rec Note Co-signed by Attending: Coverage Notice Comment: [facility] Last DP export: 03/10/18 1:25 p Patient Name: VANESA LEY Page [phone] at 1551 All edits/amendments must be made on the electronic document DICTATION DATE: 03/11/18 155 [employer] MECHANICAL ENGINEER: WILLIAM 03/11/18 1551 RPT#: [id number] DC DATE:03/10/18 STATUS: DIS IN [facility] [address] [place] [address] END OF REPORT
== END 2018-03-10 14:55 | disposition home health service (06) | DRG 179 ==
LOC: D.SDCHOLD 13:25 → D.M3 13:25 → OBSVTIME 13:25 → D.M3 13:52
PROVIDERS: Family Medicine; Internal Medicine Pulmonary Disease; ADMIT Internal Medicine Nephrology
DX: J15.6 Pneumonia due to other Gram-negative bacteria (principal); J13 Pneumonia due to Streptococcus pneumoniae; J02.0 Streptococcal pharyngitis; J15.212 Pneumonia due to Methicillin resistant Staphylococcus aureus; E87.6 Hypokalemia; K21.9 Gastro-esophageal reflux disease without esophagitis; I48.91 Unspecified atrial fibrillation; I08.1 Rheumatic disorders of both mitral and tricuspid valves; D64.9 Anemia, unspecified; M81.0 Age-related osteoporosis without current pathological fracture; R74.0 Nonspecific elevation of levels of transaminase and lactic acid dehydrogenase [LDH]

== ENCOUNTER → 2020-07-12 08:30 | Outpatient (CLI) | payer MEDICARE ==
[2020-01-31 11:14] VITALS: BMI 31.0
[~2020-07-12 08:30] MED LIST changes: +BENZONATATE200 MG PO; +CO Q-10100 MG PO; +MUCINEX DM ER1 EAC1 PO; +PEPCID AC20 MG PO; +POTASSIUM CHLO20 MEQ PO; +TOBREX5 ML EACH EYE; +ULTRAM50 MG PO; +VITAMIN E400 UNI2 PO; +ZOFRAN ODT4 MG/UDTAB PO
== END | disposition home or self-care (01) ==
LOC: D.RAD 08:30
PROVIDERS: ATTEND Surgery
DX: R13.10 Dysphagia, unspecified (principal); Z98.890 Other specified postprocedural states

== ENCOUNTER 2020-07-18 05:29 | Day surgery (SDC) | payer MEDICARE ==
[~2020-07-18] VITALS: Ht 157.5 cm; Wt 73.2 kg
[2020-07-18 06:01] LABS: BASOPHILS 1.2 % (0-2); EOSINOPHILS 0.8 % (0-7); HEMATOCRIT 44.1 % (36.0-48.0); HEMOGLOBIN 14.7 g/dL (12-16); MCH 29.8 pg (26.0-34.0); MCHC 33.4 g/dL (31.0-37.0); MCV 89.1 fL (80.0-100.0); MEAN PLATELET VOLUME 8.3 fL (7.4-10.4); MONOCYTES 10.5 % (2-11); NEUTROPHILS 63.5 % (40-80); PLATELET COUNT 252 10x3/uL (130-400); RBC 4.95 10x6/uL (4.00-5.40); RDW 14.8 % (11.5-14.5); WBC 8.7 10x3/uL (4.8-10.8)
[2020-07-18 06:23] LABS: ANION GAP 12.5 mmol/L (8-16); CALCIUM 9.1 mg/dL (8.5-10.1); CARBON DIOXIDE 26.5 mmol/L (21.0-32.0); CREATININE - SERUM 1.1 mg/dL (0.6-1.3)
[2020-07-18 07:08] VITALS: BP 141/72; Ht 157.5 cm; Wt 73.2 kg
--- NOTE | 2020-07-18 09:22 | NUR ---
0850 IV DC'D. CATHETER TIP INTACT. NO BLEEDING,REDNESS OR SWELLING NOTED. COBAN DRESSING APPLIED. 0900 DISCHARGE INSTRUCTIONS REVIEWED WITH PT WHO VOICES UNDERSTANDING OF INSTRUCTIONS.
--- NOTE | 2020-07-19 09:28 | OP ---
PATIENT NAME: VANESA LEY MEDICAL RECORD: [id number] :[birth year] LOCATION:D.OPS ADMISSION DATE: SURGEON: CLARITA SOLARES MD DATE OF OPERATION: 07/18/2020 PREOPERATIVE DIAGNOSES: 1. Dysphagia. 2. History of laparoscopic fundoplication. 3. Gastroesophageal reflux disease. POSTOPERATIVE DIAGNOSES: 1. Dysphagia. 2. History of laparoscopic fundoplication. 3. Gastroesophageal reflux disease. PROCEDURE: EGD with esophageal dilatation and biopsy. SURGEON: Clarita Solares MD DESCRIPTION OF PROCEDURE: An Olympus endoscope was advanced through the mouth and esophagus. We were able to easily pass through the patient's GE junction and a fundoplication wrap. As we passed through the stomach, we entered the pylorus. We could see about the second portion of the duodenum. There were no signs of any inflammatory changes, masses or lesions. As we pulled the scope back, we could visualize the stomach. The antrum of the stomach appeared normal with no signs of any inflammatory changes. A random biopsy was performed near the antrum of the stomach. A retroflexed view showed the patient had a good patent fundoplication wrap. The wrap appeared to not be loose. The patient had no other signs of masses, lesions or ulcerations throughout the stomach, body or fundus. As we pulled the scope back, we could see that the scope would easily pass through the GE junction, but there was a little bit of tightening to the tissue. We went ahead and inserted an 18-20 mm balloon dilator and placed it at the GE junction. We insufflated this up to 20 mm on two separate occasions and held it there for at least 10 seconds. At the conclusion of this, we inspected the area and there were no signs of any trauma to the tissue. At this point, the insufflation and the scope were removed. COMPLICATIONS: None. CONDITION: Stable. ANESTHESIA: TIVA. BLOOD LOSS: Minimal. TRANSINT:[id number] Voice Confirmation ID: [id number] DOCUMENT ID: [id number] OPERATIVE REPORT [id number] VANESA LEY CLARITA SOLARES MD at 0928 CC: GÉNESIS NOLASCO [phone] DICTATION DATE: 07/18/20823 GENETICS PHYSICIAN: 07/18/20 0957 [facility] 07/18/20 [facility] [address] [place] [address]
== END 2020-07-18 09:09 | disposition home or self-care (01) ==
LOC: D.OPS 05:29
PROVIDERS: Anesthesiology; ATTEND Surgery
DX: R13.10 Dysphagia, unspecified (principal); Z98.890 Other specified postprocedural states; K21.9 Gastro-esophageal reflux disease without esophagitis; R10.9 Unspecified abdominal pain; J45.909 Unspecified asthma, uncomplicated; I48.91 Unspecified atrial fibrillation

== ENCOUNTER 2020-08-14 01:45 | Observation (INO) | payer MEDICARE ==
[~2020-08-14] VITALS: Ht 157.5 cm; Wt 74.1 kg
[2020-08-14 03:00] VITALS: BP 157/77
[2020-08-14 03:05] LABS: BASOPHILS 0.7 % (0-2); EOSINOPHILS 1.6 % (0-7); HEMATOCRIT 44.4 % (36.0-48.0); HEMOGLOBIN 14.8 g/dL (12-16); LYMPHOCYTES 26.9 % (15-50); MCH 30.1 pg (26.0-34.0); MCHC 33.4 g/dL (31.0-37.0); MEAN PLATELET VOLUME 8.9 fL (7.4-10.4); MONOCYTES 13.2 % (2-11); NEUTROPHILS 57.6 % (40-80); PLATELET COUNT 249 10x3/uL (130-400); RBC 4.94 10x6/uL (4.00-5.40); RDW 14.6 % (11.5-14.5); WBC 8.9 10x3/uL (4.8-10.8)
[2020-08-14 03:06] LABS: CALC OSMOLALITY 292 mosm/kg (275-300); CALCIUM 8.5 mg/dL (8.5-10.1); CARBON DIOXIDE 23.5 mmol/L (21.0-32.0); CHLORIDE - SERUM 111 mmol/L (98-107); CREATININE - SERUM 0.8 mg/dL (0.6-1.3); GLUCOSE 126 mg/dL (74-106); POTASSIUM - SERUM 3.6 mmol/L (3.5-5.1); SODIUM 146 mmol/L (136-145); UREA NITROGEN 12 mg/dL (7-18); eGFR NON AFRICAN AMERICAN 72 mL/min (90-120)
[2020-08-14 03:09] LABS: APTT 31.2 SECONDS (22.8-39.4); INR 0.99 (0.85-1.17); PROTIME 12.1 SECONDS (11.6-15.0)
[2020-08-14 03:10] LABS: D-DIMER-QUANTITATIVE 0.31 ug/mLFEU (0.20-0.54)
[2020-08-14 03:17] LABS: ALBUMIN 3.2 g/dL (3.4-5.0); ALKALINE PHOSPHATASE 109 U/L (30-120); ALT (SGPT) 26 U/L (10-68); BILIRUBIN - TOTAL 0.42 mg/dL (0.2-1.3); PRO BNP 431 pg/mL (0-450); PROTEIN - SERUM 6.5 g/dL (6.4-8.2); TROPONIN-I < 0.017 ng/mL (0.000-0.060)
[2020-08-14 06:12] VITALS: BP 149/62
[2020-08-14 07:17] LABS: BILIRUBIN NEGATIVE (NEGATIVE); KETONE NEGATIVE mg/dL (< 1+); NITRITE NEGATIVE (NEGATIVE); PH 6.5 (5.0-8.0); UROBILINOGEN NORMAL mg/dL (< 2)
[2020-08-14 07:20] LABS: BACTERIA FEW HPF (<MOD); WHITE CELLS - URINE 2 HPF (0-4)
[2020-08-14 08:31] VITALS: BP 126/46
--- NOTE | 2020-08-14 08:32 | NUR ---
PT LYING COMFORTABLY IN BED. DENIES NEEDS AT THIS TIME. AWAITING TRANSFER TO FLOOR.
[2020-08-14 09:55] VITALS: Ht 157.5 cm; Wt 74.1 kg
[2020-08-14 11:14] VITALS: BP 160/62
--- NOTE | 2020-08-14 11:15 | NUR ---
PT RESTING QUIETLY ON CART. REMAINS IN SINUS RHYTHM. DENIES NEEDS. AWARE AWAITING DISCHARGE. WILL CONTINUE TO MONITOR.
[2020-08-14] MEDS ORDERED: TIAZAC120 MG PO (11:46)
[2020-08-14] MEDS ORDERED: ELIQUIS5 MG PO (11:46)
== END 2020-08-14 12:31 | disposition home or self-care (01) ==
LOC: D.ER 01:45 → OBSVTIME 02:06 → D.EDHOLD 02:06 → D.M2 06:53 → D.EDHOLD 09:50
PROVIDERS: Family Medicine; ADMIT Family Medicine; ATTEND Family Medicine
DX: I48.91 Unspecified atrial fibrillation (principal); E87.1 Hypo-osmolality and hyponatremia; K21.9 Gastro-esophageal reflux disease without esophagitis; R06.02 Shortness of breath